=== PATIENT | male | born 1995 | race Caucasian/White ===

== ENCOUNTER 2019-12-15 18:43 | Emergency (ER) | payer SELFPAY ==
[2019-12-15] MEDS ORDERED: Ketorolac Tromethamine 30 MG/ML VIAL ONE (20:18)
== END 2019-12-15 20:32 | disposition home or self-care (01) ==
LOC: ERS 18:43
DX: S39.012A Strain of muscle, fascia and tendon of lower back, initial encounter (principal); F41.9 Anxiety disorder, unspecified; F17.210 Nicotine dependence, cigarettes, uncomplicated; X50.0XXA Overexertion from strenuous movement or load, initial encounter; Y99.0 Civilian activity done for income or pay
CPT/HCPCS: 96372; 99283; J1885